=== PATIENT | male | born 1960 | race African-American/Black ===

== ENCOUNTER 2021-12-06 04:24 | Day surgery (SDC) | payer OTHER ==
[2021-12-03 15:45] VITALS: BMI 25.0
[2021-12-06 10:30] VITALS: TEMP 97.3
[2021-12-06 11:06] VITALS: BP 123/86; PULSE 72
== END 2021-12-06 11:17 | disposition home or self-care (01) ==
LOC: JASU-ENDO 04:24
PROVIDERS: ATTEND Internal Medicine Gastroenterology
PROC: 0DB78ZX Excision of Stomach, Pylorus, Via Natural or Artificial Opening Endoscopic, Diagnostic (ICD-10-PCS; 2021-12-06)
PROC: 0DB68ZX Excision of Stomach, Via Natural or Artificial Opening Endoscopic, Diagnostic (ICD-10-PCS; 2021-12-06)
PROC: 0DB48ZX Excision of Esophagogastric Junction, Via Natural or Artificial Opening Endoscopic, Diagnostic (ICD-10-PCS; 2021-12-06)
PROC: 0DB98ZX Excision of Duodenum, Via Natural or Artificial Opening Endoscopic, Diagnostic (ICD-10-PCS; principal; 2021-12-06 10:00)
DX: K29.50 Unspecified chronic gastritis without bleeding (principal); K44.9 Diaphragmatic hernia without obstruction or gangrene; F10.10 Alcohol abuse, uncomplicated
CPT/HCPCS: 88305-TC

== ENCOUNTER 2022-04-23 14:25 | Observation (INO) | payer OTHER ==
[2022-04-23] MEDS ORDERED: ASPIRIN 81 MG CHEWABLE TABLETS PO ONE (16:08)
[2022-04-23] MEDS ORDERED: ASPIRIN COATED 81 MG TABLET.EC ONE (16:31)
[2022-04-23 17:52] LABS: BASO % 0.8 % (0-2.0); EOS % 2.3 % (0-4.5); HEMATOCRIT 42.5 % (35.4-49); HEMOGLOBIN 14.1 GM/dL (11.7-16.9); LYMPH % 31.3 % (8-40); MCH 32.6 pg (25.7-33.7); MCHC 33.1 g/dl (32.0-35.9); MEAN CELL VOLUME 98.4 fl (80-96); MONO % 7.2 % (3.8-10.2); NEUT % 58.4 % (42.8-82.8); PLATELET COUNT 260 10^3/uL (134-434); RBC 4.32 M/mm3 (4.00-5.60); RDW 12.9 % (11.9-15.9); WHITE BLOOD COUNT 7.3 K/mm3 (4.0-10.0)
[2022-04-23 18:03] LABS: CHLORIDE 104 mmol/L (98-107); SODIUM 139 mmol/L (136-145)
[2022-04-23 18:06] LABS: ALBUMIN 3.7 g/dl (3.4-5.0); CALCIUM 9.5 mg/dL (8.5-10.1)
[2022-04-23 18:07] LABS: ANION GAP 9 MMOL/L (8-16); BLOOD UREA NITROGEN 16.4 mg/dL (7-18); CO2 26 mmol/L (21-32); GLUCOSE,RANDOM 77 mg/dL (74-106)
[2022-04-23 18:09] LABS: SGPT/ALT 36 U/L (13-61)
[2022-04-23 18:10] LABS: SGOT/AST 43 U/L (15-37)
[2022-04-23 18:11] LABS: BILIRUBIN,TOTAL 0.6 mg/dL (0.2-1); TOT PROT 6.8 g/dl (6.4-8.2)
[2022-04-23 18:12] LABS: ALK PHOS 104 U/L (45-117)
[2022-04-23] MEDS ORDERED: ATORVASTATIN CA 80 MG TABLET (FP) PO ONE (18:37)
[2022-04-23] MEDS ORDERED: ATORVASTATIN CA 80 MG TABLET (FP) ONE (19:21)
[2022-04-24 00:23] VITALS: BMI 23.6
[2022-04-24] MEDS: ENOXAPARIN NA (PORCINE) 80 MG/0.8 ML DISP.SYRIN SQ SCH ×3 (04:09→22:17)
[2022-04-24 08:22] LABS: HEMATOCRIT 41.2 % (35.4-49); HEMOGLOBIN 14.3 GM/dL (11.7-16.9); MCH 33.5 pg (25.7-33.7); MCHC 34.6 g/dl (32.0-35.9); MEAN CELL VOLUME 96.6 fl (80-96); PLATELET COUNT 270 10^3/uL (134-434); RBC 4.27 M/mm3 (4.00-5.60); RDW 12.5 % (11.9-15.9)
[2022-04-24 08:41] LABS: ALBUMIN 3.3 g/dl (3.4-5.0); BLOOD UREA NITROGEN 14.9 mg/dL (7-18); MAGNESIUM 1.8 mg/dL (1.8-2.4)
[2022-04-24 08:44] LABS: PHOSPHOROUS 3.5 mg/dL (2.5-4.9)
[2022-04-24 08:46] LABS: BILIRUBIN,TOTAL 0.9 mg/dL (0.2-1); TOT PROT 6.4 g/dl (6.4-8.2)
[2022-04-24 09:29] LABS: CHOLESTEROL 224 mg/dL (50-200)
[2022-04-24 09:30] LABS: LDL CHOLESTEROL (ONLY SJRH) 152 mg/dL (5-100)
[2022-04-24 09:31] LABS: HDL CHOLESTEROL 65 mg/dL (40-60)
[2022-04-24 09:32] LABS: TRIGLYCERIDES 93 mg/dL (0-150)
[2022-04-24] MEDS ORDERED: metoPROLOL SUCCINATE 25 MG TAB.SR.24H (FP) PO SCH (10:00)
[2022-04-24] MEDS: ASPIRIN 81 MG CHEWABLE TABLETS PO SCH (10:09)
[2022-04-24] MEDS: FAMOTIDINE 20 MG TABLET PO SCH (10:09)
[2022-04-24] MEDS: METOPROLOL TARTRATE 25 MG TABLET (FP) PO SCH ×2 (15:38→22:17)
[2022-04-24] MEDS ORDERED: ATORVASTATIN CA 80 MG TABLET (FP) PO SCH (22:00)
[2022-04-25] MEDS: METOPROLOL TARTRATE 25 MG TABLET (FP) PO SCH (06:07)
[2022-04-25 08:32] VITALS: BP 147/87; PULSE 70; RESP 16; TEMP 98.1
[2022-04-25 09:25] LABS: BASO % 0.7 % (0-2.0); HEMATOCRIT 40.8 % (35.4-49); HEMOGLOBIN 14.4 GM/dL (11.7-16.9); LYMPH % 41.9 % (8-40); MCH 34.2 pg (25.7-33.7); MCHC 35.2 g/dl (32.0-35.9); MEAN CELL VOLUME 97.1 fl (80-96); MONO % 13.1 % (3.8-10.2); NEUT % 38.3 % (42.8-82.8); PLATELET COUNT 267 10^3/uL (134-434); RDW 12.3 % (11.9-15.9); WHITE BLOOD COUNT 5.1 K/mm3 (4.0-10.0)
[2022-04-25 09:51] LABS: ALBUMIN 3.5 g/dl (3.4-5.0); CALCIUM 9.2 mg/dL (8.5-10.1)
[2022-04-25 09:55] LABS: BLOOD UREA NITROGEN 12.4 mg/dL (7-18)
[2022-04-25 09:59] LABS: TOT PROT 6.4 g/dl (6.4-8.2)
[2022-04-25] MEDS: ASPIRIN 81 MG CHEWABLE TABLETS PO SCH (10:04)
[2022-04-25] MEDS: ENOXAPARIN NA (PORCINE) 80 MG/0.8 ML DISP.SYRIN SQ SCH (10:04)
[2022-04-25] MEDS: FAMOTIDINE 20 MG TABLET PO SCH (10:04)
== END 2022-04-25 14:12 | disposition home or self-care (01) ==
LOC: JER 14:25 → JERBED 16:39 → INTOOBSV 16:39 → UNDOADMOB 16:39 → J4W 04-24 01:04 → JERBED 04-24 01:04 → J4W 04-24 15:08
PROVIDERS: ADMIT Hospitalist; ATTEND Nurse Practitioner Acute Care
PROC: 3E023GC Introduction of Other Therapeutic Substance into Muscle, Percutaneous Approach (ICD-10-PCS; principal; 2022-04-24)
DX: I21.4 Non-ST elevation (NSTEMI) myocardial infarction (principal); I10 Essential (primary) hypertension; E78.5 Hyperlipidemia, unspecified; K27.9 Peptic ulcer, site unspecified, unspecified as acute or chronic, without hemorrhage or perforation; R77.8 Other specified abnormalities of plasma proteins
CPT/HCPCS: 0241U-QW; 36415; 71046-TC-FY; 78452-TC; 80053; 80061; 82550; 82553; 83036; 83735; 84100; 84443; 84484; 85025; 85027; 93005; 93010; 93017; 93306-TC; 96372; 99291; 99292; A9502; G0378